=== PATIENT | male | born 1975 | race American Indian/Alaskan Native ===

== ENCOUNTER 2018-02-11 05:45 | Day surgery (SDC) | payer MEDICAID ==
[2018-01-24 10:46] VITALS: BMI 34.4
[2018-02-11] MEDS ORDERED: Lidocaine/Epinephrine 1% 1:100000 10 ML IJ ONE (07:25)
[2018-02-11] MEDS ORDERED: EPINEPHrine 1:1000 Nasal Sol(30mL) ONE (07:54)
[2018-02-11] MEDS ORDERED: Acetaminophen-Codeine 300/30 mg Tab PO PRN (09:33)
[2018-02-11] MEDS ORDERED: Dextrose 5%/0.45% NS 1,000 ML IV SCH (09:45)
[2018-02-11] MEDS ORDERED: Oxymetazoline 0.05% Nasal Spray (30 ml) NS ONE (09:54)
[2018-02-11] MEDS ORDERED: Propofol 10 mg/ml Inj (20 ML) ONE ×2 (09:55→10:11)
[2018-02-11] MEDS ORDERED: Midazolam 2 MG/2 ML VIAL ONE (09:55)
[2018-02-11] MEDS: ceFAZolin 1 gm in NS 1 GM/100 ML BAG IVPB ONE ×2 (10:20→10:32)
[2018-02-11] MEDS ORDERED: EPINEPHrine 1 mg/ml (1:1000) Inj ONE (11:24)
[2018-02-11] MEDS ORDERED: Rocuronium 10 mg/ml (5 ml) ONE (11:36)
[2018-02-11] MEDS ORDERED: Neostigmine Methylsulfate 3mg/3ml Syringe IV ONE (11:36)
[2018-02-11] MEDS ORDERED: Succinylcholine Chloride 20 mg/ml Syr (5 ml) IV ONE (11:36)
[2018-02-11] MEDS ORDERED: HYDROmorphone 0.5 mg/0.5 ml ISec IVP PRN (11:50)
[2018-02-11] MEDS ORDERED: Lactated Ringer's 1,000 ML IV ONE (12:12)
[2018-02-11 15:57] VITALS: BP 148/79; PULSE 100; RESP 18; TEMP 98; O2SAT 97
--- NOTE | 2018-02-11 23:17 | OP ---
PROCEDURE DATE: 02/11/2018 PREOPERATIVE DIAGNOSES: Deviated septum, large turbinates, sinusitis. POSTOPERATIVE DIAGNOSES: Deviated septum, large turbinates, sinusitis. PROCEDURE: Bilateral endoscopic maxillary antrostomy, bilateral endoscopic ethmoidectomy, bilateral endoscopic frontal sinusotomy, and left endoscopic sphenoidotomy, septoplasty, bilateral endoscopic inferior turbinate reduction. SIGNIFICANT FINDINGS: Deviated septum, large turbinates, maxillary antrum stenosed on both sides, sphenoid antrum stenosed on the left, frontal recess stenosed on both sides and sinusitis changes noted in the ethmoid sinuses. DESCRIPTION OF PROCEDURE: The patient was brought into the room, placed in supine position, anesthesia was initiated through an ET tube. Adrenaline-soaked pledgets were inserted into the nasal cavity, remained there for at least 5 minutes and removed. Navigation was set up and used throughout the case in order to ensure that the skull base and orbit were not entered. The septum was injected on both sides with lidocaine with epinephrine. A Goldfield incision was made on the left and mucoperichondrial flap was raised. A vertical incision was made in the cartilage leaving a 1.5-cm anterior and superior strut and a mucoperichondrial flap was raised on the other side. Deviated portion of the cartilage and bone were removed using forceps and chisel. A quilting suture was used to suture the two flaps together and close the Goldfield incision. A 0-degree scope was then inserted into the nasal cavity. Both inferior turbinates were noted to be enlarged and they were reduced using scissors going from an inferior to superior, anterior to posterior direction on both sides, first on the left, then on the right. Bleeding was controlled on both sides using suction cautery. Attention was turned to the left and the middle turbinate was injected with lidocaine with epinephrine and medialized. The uncinate process was medialized and removed using forceps. A debrider was used to enter the ethmoid bulla inferomedially, going posteriorly to the basal lamella, then anteriorly and superiorly until the ethmoid bulla was removed. The basal lamella was entered. Posterior ethmoid cells were entered and opened. The skull base was identified and followed anteriorly all the way to the area of the anterior ethmoid air cells which was noted to be stenosed and opened using forceps. A curved suction hooked up to navigation was used to locate the maxillary antrum, which was noted to be stenosed and opened using forceps. Suction was used to locate the sphenoid antrum, which was noted to be stenosed and opened using forceps. Bleeding was controlled using adrenaline-soaked pledgets and suction cautery. Next, attention was turned to the other side. The middle turbinate was injected with lidocaine with epinephrine and medialized. The uncinate process was medialized and removed. Debrider was used to enter the ethmoid bulla inferomedially going posteriorly to the basal lamella, then anteriorly and superiorly until the ethmoid bulla was removed. The basal lamella was entered. Posterior ethmoid cells were entered and opened. The skull base was identified and followed anteriorly all the way to the area of the anterior ethmoid air cells. Frontal recess was noted to stenosed and opened using forceps. A curved suction hooked up to navigation was used to locate the maxillary antrum, which was noted to be stenosed and opened using forceps. Bleeding was controlled using suction cautery and adrenaline-soaked pledgets. Stents were placed, splints were placed. The patient was taken off anesthesia and taken to recovery room in a stable manner. Gabe Fuast MD
== END 2018-02-11 15:15 | disposition home or self-care (01) ==
LOC: C.SDS 05:45
PROVIDERS: ATTEND Otolaryngology
DX: J34.2 Deviated nasal septum (principal); J34.3 Hypertrophy of nasal turbinates; J32.0 Chronic maxillary sinusitis; J32.1 Chronic frontal sinusitis; J32.2 Chronic ethmoidal sinusitis; J32.3 Chronic sphenoidal sinusitis; J32.9 Chronic sinusitis, unspecified
CPT/HCPCS: 30801; 31256; 31276; 31287; 88304; 88311; J0690; J1100; J1170; J2001; J2250; J2405; J2704; J2710; J3010; J7040; J7120

== ENCOUNTER 2018-02-12 04:20 | Emergency (ER) | payer MEDICAID ==
[2018-02-12 04:22] VITALS: BMI 34.4
[2018-02-12 04:42] VITALS: RESP 20
[2018-02-12] MEDS ORDERED: Oxycodone/Acetaminophen 5/325 mg Tab PO STA (04:52)
[2018-02-12] MEDS ORDERED: Oxycodone/Acetaminophen 5/325 mg Tab ONE (04:58)
--- NOTE | 2018-02-12 05:31 | C.PDOC ---
History Of Present Illness 42 year old male who had same day nasal surgery for sinus issues and deviated septum yesterday by Dr Faust, presents now because he states he feels a bubbling sensation in his nose w/ epistaxis from both nostrils. Patient reports he has an appointment with Dr. Faust this morning at 09:00. Patient also states he has a dental problem and is waiting for approval for a root canal but is now complaining of dental pain to the left mandibular area. Patient is on augmentin and tylenol w/ codiene. Denies fever or chills. Chief Complaint (Nursing): ENT Problem History Per: Patient History/Exam Limitations: None Onset/Duration Of Symptoms: Hrs Current Symptoms Are (Timing): Still Present Past Medical History Reviewed: Historical Data, Nursing Documentation, Vital Signs Vital Signs: Last Vital Signs Temp 99.1 F 02/12/18 04:32 Pulse 118 H 02/12/18 04:32 Resp 20 02/12/18 04:32 BP 152/97 H 02/12/18 04:32 Pulse Ox 97 02/12/18 05:41 - Medical History PMH: Fractures (LEFT WRIST) Family History: States: Unknown Family Hx - Social History Hx Tobacco Use: Yes Hx Alcohol Use: Yes Hx Substance Use: No - Immunization History Hx Tetanus Toxoid Vaccination: No Hx Influenza Vaccination: No Hx Pneumococcal Vaccination: No Review Of Systems Constitutional: Negative for: Fever, Chills ENT: Positive for: Other (Bubbling sensation in nose, epistaxis) Respiratory: Negative for: Cough Gastrointestinal: Negative for: Nausea, Vomiting Physical Exam - Physical Exam Appears: Non-toxic Skin: Normal Color, Warm, Dry Head: Atraumatic, Normacephalic Eye(s): bilateral: Normal Inspection Nose: No Epistaxis, Other (Tubes in bilateral nostrils) Teeth: Caries (Left lower teeth) Throat: Other (Small amount of blood in posterior pharynx. No active hemorrhage) Neurological/Psych: Oriented x3, Normal Speech ED Course And Treatment O2 Sat by Pulse Oximetry: 97 (room air) Pulse Ox Interpretation: Normal Progress Note: Percocet administered. On re-evaluation patient feels better, no active bleeding, toothache got better. patient is stable to be d/c home with ENT and Dentist follow up. Disposition - Disposition Referrals: Gabe Faust MD [Staff Provider] - Disposition: HOME/ ROUTINE Disposition Time: 05:53 Condition: STABLE Additional Instructions: Follow up with ENT at 9 am today and with Dentist as previously instructed. Return to ED if feel worse. Prescriptions: Docusate Sodium [Colace] 100 mg PO BID PRN #30 capsule PRN Reason: Constipation oxyCODONE/Acetaminophen [Percocet 5/325 mg Tab] 1 tab PO QID PRN #20 tab PRN Reason: Pain Instructions: Nosebleeds, Dental Pain (DC) Forms: Fanzter (Occitan) - Clinical Impression Clinical Impression: Epistaxis, Toothache - PA / INSPECTOR PAWNSHOP DETAIL / Resident Statement MD/DO has reviewed & agrees with the documentation as recorded. - Scribe Statement The provider has reviewed the documentation as recorded by the Scribdoroteo Blackburn All medical record entries made by the Lacyibdoroteo were at my direction and personally dictated by me. I have reviewed the chart and agree that the record accurately reflects my personal performance of the history, physical exam, medical decision making, and the department course for this patient. I have also personally directed, reviewed, and agree with the discharge instructions and disposition.
[2018-02-12 06:07] VITALS: BP 150/80; PULSE 108; TEMP 98.8
[2018-02-12 06:25] VITALS: O2SAT 97
== END 2018-02-12 06:07 | disposition home or self-care (01) ==
LOC: C.ER 04:20
DX: R04.0 Epistaxis (principal); K08.89 Other specified disorders of teeth and supporting structures